=== PATIENT | female | born 1995 | race Two or more races ===

== ENCOUNTER 2022-04-01 02:26 | Emergency (ER) | payer SELFPAY ==
[~2022-04-01] VITALS: Ht 162.6 cm; Wt 159.0 kg
[2022-04-01 03:42] VITALS: BP 136/88
[2022-04-01] MEDS ORDERED: AMOX-277 PO (03:59)
[2022-04-01] MEDS ORDERED: ACET-1158 PO (03:59)
[2022-04-01] MEDS ORDERED: cefTRIAXone SOD 1,000 MG VL IM ONE (04:00)
[2022-04-01] MEDS ORDERED: BENZOCAINE (DENTAL) 20 % SPRAY 60ML MT ONE (04:00)
== END 2022-04-01 05:28 | disposition home or self-care (01) ==
LOC: ER 02:26
DX: S02.5XXA Fracture of tooth (traumatic), initial encounter for closed fracture (principal); K04.7 Periapical abscess without sinus; Z79.899 Other long term (current) drug therapy; Z79.2 Long term (current) use of antibiotics; X58.XXXA Exposure to other specified factors, initial encounter; Y93.89 Activity, other specified; Y92.89 Other specified places as the place of occurrence of the external cause; Y99.8 Other external cause status
CPT/HCPCS: 96372; 99283; J0696